=== PATIENT | female | born 1970 | race Caucasian/White ===

== ENCOUNTER 2016-08-12 22:10 | Emergency (ER) | payer OTHER ==
--- NOTE | ~2016-08-12 | EKG ---
PATIENT: JOAN RODRIGUEZ UNIT #: [id number] Ventricular Rate: 123 BPM Atrial Rate: 100 BPM QRS Duration: 74 ms Q-T Interval: 322 ms QTC Calculation(Bezet): 460 ms Calculated R Turner: 96 degrees Calculated T Turner: 94 degrees Diagnosis Line: Atrial fibrillation with rapid ventricular Diagnosis Line: response Diagnosis Line: Rightward axis Diagnosis Line: Low voltage QRS Diagnosis Line: Poor R wave progression questionable lead position Diagnosis Line: or body habitus Diagnosis Line: Abnormal ECG Diagnosis Line: No previous ECGs available Diagnosis Line: Confirmed by SPENCER ENRIQUEZ MD ([id number]) on 08/18/2016 Diagnosis Line: 9:37:35 AM INTERPRETING MD: MINA MOSLEY
[~2016-08-12 22:10] MED LIST: BACTRIM DS TABL1 TA1 PO; CARVEDILOL25 MG PO; CLONIDINE PO; COUMADIN5 MG PO; FLOMAX0.4 M1 PO; GLUCOPHAGE500 MG PO; LASIX PO; LASIX20 MG PO; LEVOTHYROXINE88 MCG PO; LISINOPRIL20 MG PO; LOPRESSOR PO; NORCO1 TAB 10/3 PO; NORVASC; PYRIDIUM100 MG PO; ROBAXIN500 MG PO; ZOFRAN ODT4 MG/UDTAB PO
[2016-08-12 22:36] LABS: BASOPHIL# 0.1 X10e3 (0-0.3); BASOPHIL% 0.7 % (0-2.5); EOSINOPHIL# 0.2 X10e3 (0-0.7); EOSINOPHIL% 1.4 % (0.0-7.0); HEMATOCRIT 46.2 % (35.0-45.0); HEMOGLOBIN 15.2 gm/dL (12.0-16.0); LYMPHOCYTE# 2.1 X10e3 (1.0-3.5); LYMPHOCYTE% 18.8 % (17.0-45.0); MEAN CELL VOLUME 87.2 FL (83-96); MEAN CORPUSCULAR HEMOGLOBIN 28.6 PG (28-34); MEAN CORPUSCULAR HGB CONC 32.8 g/dL (30-36); MEAN PLATELET VOLUME 8.8 FL (6.5-11.5); MONOCYTE# 0.5 X10e3 (0-1.0); MONOCYTE% 4.7 % (3.0-12.0); NEUTROPHIL# 8.3 X10e3 (1.5-7.1); NEUTROPHIL% 74.4 % (40-75); PLATELET COUNT 282 X10e3 (140-420); RED CELL DISTRIBUTION WIDTH 14.4 % (11.0-15.5); WHITE BLOOD COUNT 11.2 X10e3 (4.0-10.5)
[2016-08-12 22:38] LABS: DIFF IND YES
[2016-08-12 22:40] LABS: INR 1.1; PROTHROMBIN TIME (PATIENT) 12.7 SECONDS (9.5-12.4)
[2016-08-12 22:47] LABS: PARTIAL THROMBOPLASTIN TIME <20.0 SECONDS (25.6-38.1); PLATELET ESTIMATE NORMAL (NORMAL)
[2016-08-12 22:48] LABS: BLOOD UREA NITROGEN 15 mg/dL (9-23); BUN/CREATININE RATIO 18.75; CALCIUM SERUM 9.6 mg/dL (8.4-10.2); CARBON DIOXIDE 25 mmol/L (22-31); CHLORIDE 101 mmol/L (100-111); CREATININE SERUM 0.8 mg/dL (0.6-1.4); GLOM FILT RATE Estimated ABOVE60 mL/min (>60); GLUCOSE FASTING 161 mg/dL (70-110); POTASSIUM 4.2 mmol/L (3.5-5.1); SODIUM 136 mmol/L (135-145)
[2016-08-12 22:56] LABS: POC - CKMB 1.9 ng/mL (0.0-7.9)
[2016-08-12 22:57] LABS: POC - TROPONIN <0.05 ng/mL (<=0.05)
== END 2016-08-13 00:17 | disposition home or self-care (01) ==
LOC: SED 22:10
PROVIDERS: Emergency Medicine
DX: N93.9 Abnormal uterine and vaginal bleeding, unspecified (principal); I48.91 Unspecified atrial fibrillation; R79.1 Abnormal coagulation profile; E11.9 Type 2 diabetes mellitus without complications; I10 Essential (primary) hypertension; Z88.2 Allergy status to sulfonamides; Z88.8 Allergy status to other drugs, medicaments and biological substances; Z91.040 Latex allergy status
CPT/HCPCS: 36415; 80048; 82553; 83874; 84484; 84703; 85025; 85610; 85730; 93005; 96374; 99284

== ENCOUNTER 2016-09-04 11:49 | Emergency (ER) | payer OTHER ==
--- NOTE | ~2016-09-04 | CT2 ---
[facility] A Service of [facility] RADIOLOGY TEXT RESULTS PATIENT: JOAN RODRIGUEZ LOCATION: SED : 72 UNIT #: [id number] AGE: [address]: Cydney Fisher APRN SEX: F ORDER DR: [id number] [facility]. [place], [place] [address] [id number] MR#: [id number] #: [id number] NAME: JOAN RODRIGUEZ : 1970 SEX: F STUDY DATE/TIME: 09/04/2016 15:12 UNIT: LANA ROOM: STUDY DESCRIPTION: CT Abd and Pelv W Cont Attending Physician: Cydney Fisher A.P.R.N. Ordering Physician: Cydney Fisher A.P.R.N. Primary Care Physician: Soto Cary M.D. MEDICAL IMAGING REPORT This report is preliminary unless electronic signature is present EXAM Abdomen and pelvis CT with contrast 09/04/2016 INDICATIONS 46-year-old female with lower abdominal pain, right lower quadrant pain 4 days, nausea 4 days, diarrhea, hypertension, diabetes. TECHNIQUE/COMPARISON Contrast-enhanced abdomen and pelvis CT was performed and compared with 12/29/2015. This CT exam was performed with one or more of the following radiation dose reduction techniques: automatic exposure control, adjustment of mA and/or kV according to patient size, and iterative reconstruction. FINDINGS CT abdomen: Included lung bases clear. No pericardial or pleural effusion. Aorta unremarkable. Spleen, adrenal glands and pancreas unremarkable. There is uncomplicated cholelithiasis. There is mild fatty infiltration of the liver. There is moderate hydronephrosis of the right kidney and [id number] hydroureter on the right secondary to a 4 mm obstructing stone in the distal right ureter proximal to the right UVJ level. Additional tiny nonobstructing stones bilaterally. No hydronephrosis on the left. There is incomplete rotation of the right kidney unchanged. CT pelvis: Bladder unremarkable. Probable nabothian cysts in the cervix. No [facility] A Service of [facility] RADIOLOGY TEXT RESULTS PATIENT: JOAN RODRIGUEZ LOCATION: [facility] [place] [place] : [birth year] UNIT #: [id number] AGE: [address]: Cydney Fisher APRN SEX: F ORDER DR: drainable fluid collection in the pelvis. Probable physiologic follicles and cysts in the ovaries reaching up to a maximum diameter of 4 cm on the right. Bowel demonstrates no obstruction or focal inflammatory change. Appendix normal. There is an umbilical hernia containing fat and omental vessels. Trace fluid in the hernia sac. There also appears to be a small amount of air associated with the fluid in the hernia sac. This could alternatively represent small amount of fat. Correlate with any signs or symptoms of infection as CT cannot distinguish between infected and noninfected fluid. There is also induration of the subcutaneous fat of the lower abdominal wall extending over a craniocaudal distance of at least 10 cm suspicious for cellulitis. No associated drainable fluid collection or subcutaneous air identified. There is no inguinal adenopathy or fluid collection. Osseous structures demonstrate bilateral pars defects at L5-S1 with grade 1 antegrade listhesis of L5 on S1 that is unchanged. IMPRESSION 1. There is mild to moderate hydronephrosis of the right kidney secondary to a distal ureteral stone on the right proximal to the right UVJ level measuring 4 mm. Additional nonobstructing stones bilaterally. 2. There is a fat-containing umbilical hernia with a small amount of fluid within it. There appears to be some fat or air associated with the anterior margin of the hernia sac and fluid. Correlate with any history of recent intervention or communication with the skin surface. CT cannot distinguish between infected and noninfected fluid and this should be correlated clinically. 3. Normal appendix. 4. Uncomplicated cholelithiasis. 5. Incidental dominant follicles and cysts within the ovaries measuring up to 4 cm on the right. Similar findings were also present on the prior study. 6. Bilateral pars defects at L5-S1 grade 1 antegrade listhesis unchanged. PLEASE NOTE THAT THIS REPORT DID NOT BECOME AVAILABLE FOR REVIEW OR SIGNATURE UNTIL AFTER 8AM 09/09/16 Dictated by... Don Valdez M.D. THIS IS AN ELECTRONICALLY VERIFIED REPORT Don Valdez M.D. at 09/11/2016 2:47 PM SALVADOR/to TD: 09/04/2016 18:47 JOB #: [id number] MEDICAL IMAGING REPORT [facility] A Service of [facility] RADIOLOGY TEXT RESULTS PATIENT: JOAN RODRIGUEZ LOCATION: [facility] : 72 UNIT #: [id number] AGE: [address]: Cydney Fisher APRN SEX: F ORDER DR: Page 1 of 1 COPY
[2016-09-04 11:27] LABS: URINE APPEARANCE SL CLOUDY; URINE BLOOD 3+ (NEG); URINE COLOR YELLOW; URINE GLUCOSE NEG (NORM); URINE KETONE NEG (NEG); URINE LEUKOCYTE ESTERASE TRACE (NEG); URINE NITRATE NEG (NEG); URINE PH 5.5 (5-8); URINE PROTEIN 2+ (NEG); URINE SOURCE CLEAN CATCH; URINE SPECIFIC GRAVITY >=1.030 (1.003-1.035); URINE UROBILINOGEN 0.2 MG/DL (NORM)
[2016-09-04 11:28] LABS: MICRO INDICATED? YES; URINE BILIRUBIN NEG (NEG)
[2016-09-04 11:34] LABS: CULTURE INDICATED? NO; URINE BACTERIA NEG (NEG); URINE RBC 25-50 /[HPF] (0-2); URINE SQUAMOUS EPITHELIAL CELL MANY /[HPF]; URINE WBC 0-2 /[HPF] (0-5)
[2016-09-04 11:35] LABS: URINE MUCUS PRESENT
[2016-09-04 11:40] LABS: BASOPHIL# 0.1 X10e3 (0-0.3); BASOPHIL% 0.7 % (0-2.5); EOSINOPHIL# 0.1 X10e3 (0-0.7); EOSINOPHIL% 1.6 % (0.0-7.0); HEMOGLOBIN 13.1 gm/dL (12.0-16.0); LYMPHOCYTE# 1.1 X10e3 (1.0-3.5); LYMPHOCYTE% 13.4 % (17.0-45.0); MEAN CELL VOLUME 86.6 FL (83-96); MEAN CORPUSCULAR HEMOGLOBIN 29.1 PG (28-34); MEAN CORPUSCULAR HGB CONC 33.7 g/dL (30-36); MEAN PLATELET VOLUME 7.3 FL (6.5-11.5); MONOCYTE# 0.5 X10e3 (0-1.0); MONOCYTE% 5.9 % (3.0-12.0); NEUTROPHIL# 6.7 X10e3 (1.5-7.1); NEUTROPHIL% 78.4 % (40-75); PLATELET COUNT 294 X10e3 (140-420); RED CELL DISTRIBUTION WIDTH 14.6 % (11.0-15.5); WHITE BLOOD COUNT 8.6 X10e3 (4.0-10.5)
[2016-09-04 11:45] LABS: DIFF IND NO
[2016-09-04 11:56] LABS: INR 1.7; PROTHROMBIN TIME (PATIENT) 19.1 SECONDS (9.5-12.4)
[2016-09-04 12:03] LABS: PARTIAL THROMBOPLASTIN TIME 30.8 SECONDS (25.6-38.1)
[2016-09-04 12:04] LABS: ALBUMIN SERUM 3.8 g/dL (3.5-5.0); BUN/CREATININE RATIO 13.33; CALCIUM SERUM 9.1 mg/dL (8.4-10.2); CREATININE SERUM 1.2 mg/dL (0.6-1.4); GLOM FILT RATE Estimated 54.5 mL/min (>60); POTASSIUM 3.9 mmol/L (3.5-5.1); PROTEIN TOTAL SERUM 7.6 g/dL (6.0-8.3)
[2016-09-04 15:51] LABS: POC - CREATININE 1.38 mg/dL (0.44-1.03)
== END 2016-09-04 18:04 | disposition home or self-care (01) ==
LOC: SED 11:49
PROVIDERS: Emergency Medicine; Nurse Practitioner
DX: N13.2 Hydronephrosis with renal and ureteral calculous obstruction (principal); K42.9 Umbilical hernia without obstruction or gangrene; I10 Essential (primary) hypertension; I48.91 Unspecified atrial fibrillation; Z87.442 Personal history of urinary calculi; Z98.890 Other specified postprocedural states; Z91.040 Latex allergy status; Z88.2 Allergy status to sulfonamides; Z88.8 Allergy status to other drugs, medicaments and biological substances; Z79.01 Long term (current) use of anticoagulants; Z79.84 Long term (current) use of oral hypoglycemic drugs
CPT/HCPCS: 36415; 74177; 80053; 81003; 82565; 82947; 83690; 84703; 85025; 85610; 85730; 96374; 99284; J2405; Q9967